=== PATIENT | female | born 1955 | race Two or more races ===

== ENCOUNTER 2018-09-07 09:42 | Outpatient (CLI) | payer OTHER | END 2018-09-07 09:54 | disposition home or self-care (01) | LOC: MAMO-SONO 09:42 | DX: E03.8 Other specified hypothyroidism (principal); N60.11 Diffuse cystic mastopathy of right breast; N60.12 Diffuse cystic mastopathy of left breast ==

== ENCOUNTER 2024-02-16 13:43 | Outpatient (CLI) | payer OTHER | END 2024-02-16 13:46 | disposition home or self-care (01) | LOC: SONOGRAMA 13:43 | PROVIDERS: ATTEND Pathology Anatomic Pathology & Clinical Pathology | DX: D34 Benign neoplasm of thyroid gland (principal); E07.89 Other specified disorders of thyroid; E04.1 Nontoxic single thyroid nodule ==